=== PATIENT | female | born 1980 | race Caucasian/White ===

== ENCOUNTER 2019-02-15 08:20 | Day surgery (SDC) | payer OTHER ==
[~2019-02-15] VITALS: Ht 170.2 cm; Wt 117.9 kg
[~2019-02-15 08:20] MED LIST: EDARBYCLOR 40-1 EAC1 PO; GLUCOPHAGE1000 MG PO
[2019-02-15] MEDS ORDERED: LO LOESTRIN FE (09:52)
[2019-02-15 10:01] VITALS: BP 135/84; Ht 170.2 cm; Wt 117.9 kg
[2019-02-15 10:11] LABS: HCG URINE NEGATIVE (NEGATIVE)
[2019-02-15] MEDS ORDERED: HYDROCODON-ACE1 EAC7 PO (11:21)
--- NOTE | 2019-02-15 13:03 | NUR ---
1450 IV REMOVED AND PRESSURE HELD, DRESSING APPLIED
--- NOTE | 2019-02-15 16:21 | OP ---
PATIENT NAME: CLARENCE LORA MEDICAL RECORD: [id number] :82 LOCATION:D.OPS ADMISSION DATE: SURGEON: MICHELE YUEN MD DATE OF OPERATION: 02/15/2019 SURGEON: Michele Yuen MD PREOPERATIVE DIAGNOSIS: Epidermoid cyst of the scalp times 2. PROCEDURE PERFORMED: 1. Excisional biopsy of epidermoid cyst of the scalp: a. A 4 x 3 x 2 in the right lateral half of the scalp. b. A 3 x 3 x 2 just left of midline. ANESTHESIA: General. COMPLICATIONS: None. SPECIMENS: 1. Epidermoid cyst #1, 4 x 3 x 2 cm. 2. Epidermoid cyst #2, 3 x 3 x 2 cm. COMPLICATIONS: None. Case was clean. OPERATIVE COURSE: After consent was obtained, the patient was taken to the operating room and placed in supine position on the operating table. Next, general anesthesia was given. A timeout was taken to confirm the correct patient and procedure. The scalp was prepped and draped in typical sterile fashion, 10 cc of local anesthetic were injected on the right-sided scalp cyst. The cyst was excised using a 15-blade scalpel. The cyst was kept intact. It was circumferentially dissected using scalpel and Metzenbaum scissors. It was passed off the field and sent for permanent pathology. Adequate hemostasis was obtained with electrocautery. Deep tissue was closed with 3-0 Vicryl suture. The skin was closed with 4-0 Monocryl in a subcuticular fashion. At this time, an additional 10 cc of local anesthetic were injected circumferentially around the scalp on the left to the left of midline. An incision was made with a 15-blade scalpel. Dissection continued using a 15-blade scalpel and Metzenbaum scissors circumferentially. The cyst was excised without rupture of the cyst cavity. It was passed off the field and sent for permanent pathology. Again, hemostasis was obtained with electrocautery. Deep tissue was closed with 3-0 Vicryl suture. The skin was closed with 4-0 Monocryl. Dermabond was applied to both incisions. At the end of the case, all needle and instrument counts were correct. No complications occurred. The patient was extubated and transferred to the PACU in stable condition. TRANSINT:[id number] Voice Confirmation ID: [id number] DOCUMENT ID: [id number] OPERATIVE REPORT [id number] CLARENCE LORA JAMES J MD at 1621 CC: [id number] DICTATION DATE: 02/15/19 1125 SPEECH THERAPY ASSISTANT: 02/15/19 1142 [facility] 02/15/19 [place] [id number] [place] [id number]
== END 2019-02-15 13:00 | disposition home or self-care (01) ==
LOC: D.OPS 08:20 → D.PAN 11:00 → D.OPS 11:00
PROVIDERS: ATTEND Surgery
DX: L72.11 Pilar cyst (principal); Z01.812 Encounter for preprocedural laboratory examination